=== PATIENT | female | born 1980 | race Two or more races ===

== ENCOUNTER 2018-06-06 22:40 | Emergency (ER) | payer SELFPAY ==
[~2018-06-06] VITALS: Ht 157.5 cm; Wt 80.7 kg
[2018-06-06 22:57] VITALS: BP 118/64
[2018-06-06] MEDS ORDERED: IBUP-1060 PO (23:58)
[2018-06-06] MEDS: NAPROXEN 500 MG TABLET PO ONE (23:58)
[2018-06-06] MEDS ORDERED: AMOX875T PO (23:58)
--- NOTE | 2018-06-06 23:58 | PHYS DOC ---
Past Medical History Past Medical History: No Pertinent History Past Surgical History: Alcohol Use: Rarely Drug Use: None Adult General Chief Complaint Chief Complaint: EARACHE/EAR PAIN HPI HPI Patient is a 38 year old female who presents with bilateral ear pain and sore throat symptoms since yesterday. Patient denies any fever. Review of Systems Review of Systems Constitutional: Denies fever or chills [] Eyes: Denies change in visual acuity, redness, or eye pain [] HENT: Reports bilateral ear pain and sore throat. Denies nasal congestion Respiratory: Denies cough or shortness of breath [] Cardiovascular: No additional information not addressed in HPI [] GI: Denies abdominal pain, nausea, vomiting, bloody stools or diarrhea [] : Denies dysuria or hematuria [] Musculoskeletal: Denies back pain or joint pain [] Integument: Denies rash or skin lesions [] Neurologic: Denies headache, focal weakness or sensory changes [] All other systems were reviewed and found to be within normal limits, except as documented in this note. Current Medications Current Medications Current Medications Medications (Trade) Dose Ordered Sig/Pau Start Time Stop Time Status Last Admin Dose Admin Acetaminophen/ Hydrocodone Bitart (Lortab 5/325) 1 tab 1X ONCE 06/06/18 23:55 06/06/18 23:56 DC 06/06/18 23:59 1 TAB Amoxicillin (Amoxil) 1,000 mg 1X ONCE 06/07/18 00:15 06/07/18 00:16 UNV Dexamethasone Sodium Phosphate (Decadron) 10 mg 1X ONCE 06/07/18 00:15 06/07/18 00:16 UNV Naproxen (Naprosyn) 500 mg 1X ONCE 06/06/18 23:55 06/06/18 23:56 DC 06/06/18 23:58 500 MG Allergies Allergies Allergies Coded Allergies Type Severity Reaction Last Updated Verified Unable to Assess 06/06/18 No Physical Exam Physical Exam Constitutional: Well developed, well nourished, no acute distress, non-toxic appearance. [] HENT: Normocephalic, atraumatic, bilateral external ears normal, oropharynx moist, no oral exudates, nose normal. [] Bilateral TM are mildly injected, there is liquid material in bilateral ear canals, patient states it is Vicks +3 tonsils with exudate bilaterally +2 anterior cervical adenopathy midline uvula Eyes: PERRLA, EOMI, conjunctiva normal, no discharge. [] Neck: Normal range of motion, no tenderness, supple, no stridor. [] Cardiovascular:Heart rate regular rhythm, no murmur [] Lungs & Thorax: Bilateral breath sounds clear to auscultation [] Abdomen: Bowel sounds normal, soft, no tenderness, no masses, no pulsatile masses. [] Skin: Warm, dry, no erythema, no rash. [] Back: No tenderness, no CVA tenderness. [] Extremities: No tenderness, no cyanosis, no clubbing, ROM intact, no edema. [] Neurologic: Alert and oriented X 3, normal motor function, normal sensory function, no focal deficits noted. [] Psychologic: Affect normal, judgement normal, mood normal. [] Current Patient Data Vital Signs Vital Signs Date Time Temp Pulse Resp B/P (MAP) Pulse Ox O2 Delivery O2 Flow Rate FiO2 06/06/18 22:57 99.2 110 16 118/64 (82) 96 Room Air 99.2 EKG EKG [] Radiology/Procedures Radiology/Procedures [] Course & Med Decision Making Course & Med Decision Making Pertinent Labs and Imaging studies reviewed. (See chart for details) Patient has bilateral otitis media and tonsillitis. Discharged with amoxicillin , prednisone. OTC pain relievers. Follow-up with primary care doctor in 1-2 weeks. Instructed to return to the ED at any point symptoms worsen. Dragon Disclaimer Dragon Disclaimer This electronic medical record was generated, in whole or in part, using a voice recognition dictation system. Departure Departure Impression: Primary Impression: Otitis media Additional Impression: Acute tonsillitis Disposition: 01 HOME, SELF-CARE Condition: STABLE Referrals: NO PCP (PCP) follow up with your doctor in 1-2 week Patient Instructions: Otitis Media, Adult, Tonsillitis Additional Instructions: You were seen for ear and throat infection. We put you on antibiotics, ensure you complete them. Take the pain medicines prescribed as needed for pain. Follow -up with your doctor in 1-2 weeks. Scripts Prednisone (PREDNISONE) 50 Mg Tablet 1 TAB PO DAILY, #5 TAB Prov: MUTUNGA,JOSELIN [employer]IGHT[employer] LEAD 06/07/18 Ibuprofen (IBUPROFEN) 800 Mg Tablet 800 MG PO PRN Q6HRS PRN for INFLAMMATION, #20 TAB Prov: MUTUNGA,JOSELIN [employer] INSIGHT[employer] LEAD 06/06/18 Amoxicillin (AMOXICILLIN) 875 Mg Tablet 1 TAB PO BID, #20 TAB Prov: JOSELIN LAIRD APRN 06/06/18 Problem Qualifiers Primary Impression: Otitis media Otitis media type: other nonsuppurative Chronicity: acute Laterality: bilateral Recurrence: non-recurrent Qualified Codes: H65.193 - Other acute nonsuppurative otitis media, bilateral Additional Impression: Acute tonsillitis Pharyngitis/tonsillitis etiology: unspecified etiology Qualified Codes: J03.90 - Acute tonsillitis, unspecified JOSELIN LAIRD APRN Jun 06, 2018 23:58
[2018-06-06] MEDS: HYDROcodone/APAP 5/325MG 1 TAB TABLET PO ONE (23:59)
[2018-06-07] MEDS ORDERED: PRED50TA PO (00:06)
[2018-06-07] MEDS: AMOXICILLIN 250 MG CAPSULE. PO ONE (00:26)
[2018-06-07] MEDS: DEXAMETHASONE SOD PHOS 20 MG/5 ML VIAL. IM ONE (00:26)
[2018-06-07] MEDS: LIDOCAINE 2% VISCOUS 15 ML SOLUTION. SWSW ONE (00:26)
== END 2018-06-07 00:35 | disposition home or self-care (01) ==
LOC: ER 22:40
DX: H65.193 Other acute nonsuppurative otitis media, bilateral (principal); J03.90 Acute tonsillitis, unspecified; Z98.890 Other specified postprocedural states
CPT/HCPCS: 96372; 99284; J1100

== ENCOUNTER 2021-02-02 14:52 | Emergency (ER) | payer SELFPAY ==
[~2021-02-02] VITALS: Ht 157.5 cm; Wt 160.0 kg
[~2021-02-02 14:52] MED LIST: AMOX875T PO; IBUP-1060 PO; PRED50TA PO
[2021-02-02 16:12] VITALS: BP 122/69
[2021-02-02] MEDS ORDERED: IV NORMAL SALINE 1000ML BAG 1,000 ML IV ONE (16:45)
[2021-02-02] MEDS ORDERED: methylPREDNISolone SOD SUCC PF 125 MG/2 ML VIAL. IV ONE (16:45)
[2021-02-02] MEDS ORDERED: diphenhydrAMINE 50 MG/ML VIAL IVP ONE (16:45)
[2021-02-02] MEDS ORDERED: FAMOTIDINE 20 MG/2 ML VIAL IVP ONE (16:45)
--- NOTE | 2021-02-02 17:13 | PHYS DOC ---
Past Medical History Past Medical History: No Pertinent History Past Surgical History: No Surgical History Smoking Status: Never Smoker Alcohol Use: None Drug Use: None General Adult EDM: Chief Complaint: SKIN RASH/ABSCESS HPI: HPI: Patient is a 41-year-old female who presents to the emergency department to rash to her face and neck that started on Sunday. Patient denies any new products or possible exposures. She reports that the rash is itchy. She denies any shortness of breath, difficulty breathing or swallowing, fevers. Review of Systems: Review of Systems: Constitutional: See HPI HENT: See HPI Respiratory: See HPI Integument: See HPI Heart Score: C/O Chest Pain: N/A Risk Factors: Risk Factors: DM, Current or recent (<one month) smoker, HTN, HLP, family history of CAD, obesity. Risk Scores: Score 0 - 3: 2.5% MACE over next 6 weeks - Discharge Home Score 4 - 6: 20.3% MACE over next 6 weeks - Admit for Clinical Observation Score 7 - 10: 72.7% MACE over next 6 weeks - Early Invasive Strategies Current Medications: Current Medications Medications (Trade) Dose Ordered Sig/Pau Start Time Stop Time Status Last Admin Dose Admin Diphenhydramine HCl (Benadryl) 25 mg 1X ONCE 02/02/21 16:45 02/02/21 16:46 DC Famotidine (Pepcid Vial) 40 mg 1X ONCE 02/02/21 16:45 02/02/21 16:46 DC Methylprednisolone Sodium Succinate (SOLU-Medrol 125MG VIAL) 125 mg 1X ONCE 02/02/21 16:45 02/02/21 16:46 DC Sodium Chloride 1,000 ml @ 1,000 mls/hr 1X ONCE 02/02/21 16:45 02/02/21 17:44 Allergies: Allergies: Allergies Coded Allergies Type Severity Reaction Last Updated Verified No Known Drug Allergies 02/02/21 No Physical Exam: PE: Constitutional: Well developed, well nourished, no acute distress, non-toxic appearance. [] HENT: Normocephalic, atraumatic, bilateral external ears normal, oropharynx moist, no drooling, patient maintaining secretions, no oropharyngeal edema or erythema, no oral exudates, nose normal. [] Eyes: PERRL, EOMI, conjunctiva normal, no discharge. [] Neck: Normal range of motion, no tenderness, supple, no stridor. [] Cardiovascular:Heart rate regular rhythm, no murmur [] Lungs & Thorax: Bilateral breath sounds clear to auscultation, no tachypnea or hypoxia [] Abdomen: Bowel sounds normal, soft, no tenderness, no masses, no pulsatile masses. [] Skin: Warm, dry, erythematous papular rash noted to neck and face Back:normal rom Extremities: No tenderness, no cyanosis, no clubbing, ROM intact, no edema. [] Neurologic: Alert and oriented X 3, normal motor function, normal sensory function, no focal deficits noted. [] Psychologic: Affect normal, judgement normal, mood normal. [] Current Patient Data: Vital Signs: Vital Signs Date Time Temp Pulse Resp B/P (MAP) Pulse Ox O2 Delivery O2 Flow Rate FiO2 02/02/21 16:12 98.4 75 14 122/69 (86) 97 Room Air 98.4 EKG: EKG: [] Radiology/Procedures: Radiology/Procedures: [] Course & Med Decision Making: Course & Med Decision Making Pertinent Labs and Imaging studies reviewed. (See chart for details) [] Patient was seen in the emergency department for a itchy red rash to her neck and face that started on Sunday. Patient took Benadryl this morning at 10:00. Patient denies any new products or possible exposures. Ordered Benadryl, Pepcid and Solu-Medrol for patient but she states that she has to pick her daughter up from school and is unable to stay for the treatment. Patient signed out AGAINST MEDICAL ADVICE, she is alert and oriented and capable of making her own medical decisions. AMA papers signed. Patient be discharged home with a steroid. She is advised to follow-up with her primary care provider tomorrow. I discussed with patient all findings as well as the need to follow-up with PCP for further evaluation and treatment or return to the ER if any new or worsening symptoms. Strict return precautions were also discussed at length. Patient voiced understanding and agreement with the plan. Patient is hemodynamically stable at the time of disposition. Dragon Disclaimer: Virgie Disclaimer: This electronic medical record was generated, in whole or in part, using a voice recognition dictation system. Departure Departure Impression: Primary Impression: Urticaria Disposition: 01 HOME / SELF CARE / HOMELESS Condition: GOOD Referrals: NO PCP (PCP) Patient Instructions: Rash Additional Instructions: You were seen in the emergency department for a rash. You can continue to take Benadryl at home as directed. You are being discharged home with a steroid to take for the next 5 days. I would advise you to follow-up with your primary care provider tomorrow regarding your ER visit. Return to the emergency department if you develop worsening of your rash, shortness of breath, difficulty breathing or swallowing, high fevers refractory to treatment, intractable nausea or vomiting. Scripts Prednisone (PREDNISONE) 20 Mg Tablet 2 TAB PO DAILY for 5 Days, #10 TAB 0 Refills Prov: AKIN RUSHING APRN 02/02/21 AKIN RUSHING APRN Feb 02, 2021 17:13
[2021-02-02] MEDS ORDERED: PRED20TA PO (17:27)
== END 2021-02-02 17:27 | disposition home or self-care (01) ==
LOC: ER 14:52
DX: L50.9 Urticaria, unspecified (principal)
CPT/HCPCS: 99283